=== PATIENT | male | born 1940 | race Caucasian/White ===

== ENCOUNTER 2021-04-13 14:57 | Inpatient (IN) | payer MEDICARE, SELFPAY ==
[2021-04-13] VITALS (14 sets, daily range): BP systolic 88–105; BP diastolic 38–66; PULSE 82–106; RESP 12–28; TEMP 36.5–38.7; O2SAT 95–99; BMI 23.3
--- NOTE | ~2021-04-13 | CT_ITS ---
EXAMINATION: CT CHEST, ABDOMEN AND PELVIS WITHOUT CONTRAST CLINICAL INFORMATION: fever, ? Pneumonia, nephrostomy tube in place with abscess? pylenophritis? stone? COMPARISON: No pertinent prior studies are available for comparison. TECHNIQUE: Multidetector volumetric imaging was performed from the thoracic inlet through the pubic symphysis without IV contrast. Sagittal and coronal reformatted images were obtained on the technologist's workstation. This CT examination was performed using dose optimization techniques as appropriate, variously including the following: *Automated exposure control *Adjustment of mA and/or kV according to patient size (this includes techniques or standardized protocols for targeted exams where dose is matched to indication/reason for exam; i.e. extremities or head) *Use of iterative reconstruction technique DLP: 444 mGy-cm FINDINGS: CHEST: Lung: The lungs are clear without focal opacity or nodule. Bibasilar atelectasis/infiltrate is present, right greater than left. Mediastinum: Marked coronary calcifications are present. No hilar or mediastinal lymphadenopathy. Pericardium/Pleura: Small bilateral effusions are present, right greater than left. Chest Wall/Axilla: Severe kyphosis is present. Unremarkable ABDOMEN/PELVIS: Peritoneal Space: No significant free air or free fluid identified. Liver, Gallbladder, Biliary Tree: The liver is normal in size, shape, and attenuation. No focal hepatic lesion or biliary ductal dilatation is present. The gallbladder contains layering high density gallstones with no evidence of gallbladder wall thickening, or obvious pericholecystic inflammatory changes. Pancreas: Unremarkable Spleen: Unremarkable Adrenal Glands: Unremarkable Kidneys and Ureters: The right kidney is unremarkable. A percutaneous nephrostomy catheter is present in the left. Some left lower pole as well as left upper pole renal calculi are present, with the largest measuring 7 mm in the upper pole. No hydronephrosis is seen. No renal masses are detected. Bladder: 3 stones are present in the bladder the largest measuring about 5 mm in size. Ayala catheter balloon is inflated in the pendulous portion of the urethra. Gastrointestinal Tract: Diverticular changes present in the colon without diverticulitis. The small and large bowel are otherwise unremarkable. The appendix is unremarkable. Abdominal Wall: No significant hernia is appreciated. Lymph Nodes: No lymphadenopathy. Vascular: Calcific atherosclerotic changes present in the aorta and iliofemoral vessels without aneurysm.. An IVC filter is in place. PELVIC VISCERA: There is marked enlargement of the prostate measuring 6.7 x 6.4 x 7.1 cm for a volume of 160 to 200 mL. The seminal vesicles appear normal. OSSEUS STRUCTURES: Some ill-defined sclerotic changes are present in the bones without discrete lesion. 3 focal sclerotic densities seen in the left femoral head consistent with bone islands. Degenerative changes present in the spine. There are compression fractures of the superior endplates of L4 and L1, age indeterminate. If bony metastatic disease is questioned, would recommend a radionuclide bone scan.. CT/CT abdomen pelvis wo con IMPRESSION: 1. Bilateral pleural effusions with bilateral lower lobe atelectasis/infiltrate 2. Left percutaneous nephrostomy catheter in good position without hydronephrosis and left renal calculi. No perinephric abscess. 3. The catheter is in the urethra and not the bladder. The prostate is extremely large and there are 3 calculi in the bladder. 4. Cholelithiasis is present without evidence of cholecystitis. 5. Diffuse sclerotic areas in bone are seen along with compression fractures involving L1 and L4. Metastatic prostate CA is a consideration and a radionuclide bone scan would be of value. 6. Other incidental findings as described above including the presence of an IVC filter. This critical result was discussed with Austin YEAGER@7:04pm on the day of the exam and it was ascertained that the content and urgency of the report was understood at the time of direct communication.
[2021-04-13 15:25] LABS: Glucose, Whole Blood 94 mg/dL (60-115)
--- NOTE | 2021-04-13 15:38 | ED.MALEGU ---
HPI - Male Genitourinary General Chief complaint: Urogenital-Male Stated complaint: NAUSEA,BLOODY URINE IN F/C Time Seen by Provider: 04/13/21 15:25 Source: patient Mode of arrival: ambulatory Limitations: no limitations History of Present Illness HPI Narrative: 80-year-old male with past medical history of dementia and prostate cancer brought to ED for evaluation. Patient vomiting and had 1 episode of hematuria. Patient status post surgery from [facility] 3 weeks ago for nephrostomy tube. Patient cannot give much history. Patient is febrile tachycardic. Will do infectious workup. Will contact [facility] for patient in nose. Related Data Allergies Allergy/AdvReac Type Severity Reaction Status Date / Time No Known Allergies Allergy Verified 04/13/21 15:11 Review of Systems Review of Systems: Not get history from patient. Yes Unobtainable due to mental status (Severe dementia) FOR[facility]LY [facility] Past Medical History Medical History (Updated 04/13/21 @ 21:55 by SHOBHA Montague) Prostate cancer Social History Social History Alcohol intake: unknown Patient Tobacco Use Status: Tobacco use Unknown Use of substances other than those prescribed or required for medical reasons: Unknown Advance Directives: No Advance Directives Information Provided: Yes Physical Exam Vital Signs: Vital Signs: Last Vital Signs Temp 97.7 F 04/13/21 19:14 Pulse 84 04/13/21 21:28 Resp 18 04/13/21 21:28 BP 90/45 L 04/13/21 21:28 Pulse Ox 97 04/13/21 21:28 Body Mass Index 23.3 Const: General: cooperative, healthy appearing, comfortable, no acute distress, well developed, alert, awake and Physically active Orientation/consciousness: patient oriented x3 HENMT: Head: Yes normal to inspection, Yes No palpable skull fracture present, Yes normocephalic, Yes atraumatic and No abrasion Eyes: General: appearance normal, both eyes and all related structures Neck: Neck: Yes normal visual inspection, Yes full ROM, Yes no lymphadenopathy, Yes no meningeal signs, Yes trachea midline, Yes supple and No tender Chest: Chest palpation & inspection: normal inspection of the chest and normal palpation of entire chest wall Resp: Effort & Inspection: normal respiratory effort and able to speak in complete sentences Auscultation: clear to auscultation bilaterally Cardio: Jugular venous distension: no JVD Heart sounds: S1 normal heart sound present and S2 normal heart sound present GI: Other: Nephrostomy tube placed from a right flank and negative for any surrounding erythema or pus discharge. Inspection: Yes normal to inspection and No abdominal wall ecchymosis Palpation (GI): Soft to palpation, not firm, nontender, no guarding and not rigid : Other: Positive for blood in Ayala bag since and some blood around urethra. General: No CVA tenderness and Yes no CVA tenderness Back/Spine/Pelvis: Back: no CVA tenderness, No CVA tenderness and No back tenderness Skin: General skin exam: no rashes or lesions noted and elasticity normal Neuro: General: patient oriented x3, gait normal, no meningeal signs and CN's II-XI intact bilaterally Cranial nerves: Yes CN's II-XII intact bilaterally Psych: Appearance: grossly normal, well kempt and not disheveled Course Course Course Narrative: Will look for infectious source most likely patient will be sent for chest CT and abdominal CT to rule out any nephrostomy tube infection pyelonephritis or pneumonia. I spoke with labs and was send urine sample from both Ayala and nephrostomy tube. Antibiotics ordered. Reevaluation(s) Reevaluation #1: Patient hematuria resolved after being flushed. Clear urine. Patient sent for chest CT and abdominal CT to look for abscess on nephrostomy tube and possible pneumonia. Patient given fluids. Lactic acid 4.3. Antibiotics given. After imaging will contact Nephrology to see if patient should be transferred to [facility]. Time: 20:24 Reevaluation #2: Abdominal CT scan does not show any hydronephrosis, abscess around nephrostomy tube, or any urinary stone. Abdominal CT does shows pneumonia and also Ayala not being placed in bladder. Spoke with Dr. Napoles he was informed of patient's history, physical exam and diagnostic. He reviewed patient's abdominal CT scan states patient does not need to be transferred to [facility] due to improvement in Urology issue. Old from [facility] on the states that patient had ureter stone with hydronephrosis but now that has resolved. Will contact hospitalist for admission for sepsis due to pneumonia and UTI. Time: 20:34 Reevaluation #3: Spoke with hospitalist Dr. Tatum who recommends patient go to ICU due to patient needing pressors due to low blood pressure. Spoke with Dr. Butcher ICU and agreeable to accept patient for sepsis with hypotension and can start peripheral IV phenylephrine. Spoke with Dr. Napoles in terms of CT scan reading of Ayala not being in bladder but in urethra and he states fully does not have to be placed tonight and he will change it in the morning. Focused exam complete. Time: 21:52 Additional Reevaluation(s): Daughter Yenni Barragan ) MDM - Male Genitourinary MDM Narrative Medical decision making narrative: Sepsis. Pneumonia. UTI Lab Data Result diagrams: 04/13/21 16:12 04/13/21 16:14 Labs: Lab Results 04/13/21 04/13/21 04/13/21 Range/Units 15:20 15:57 16:11 WBC (4.8-10.8) X10*3/uL RBC (4.60-5.80) X10*6/uL Hgb (14.0-18.0) g/dl Hct (42-52) % MCV (80-98) fL MCH (27.0-33.0) pg MCHC (31.0-36.0) g/dl RDW (11.0-16.0) % Plt Count (160-400) X10*3/uL MPV (9.4-12.4) fL Immature Gran % (Auto) (0.0-0.4) % Neut % (Auto) (45-73) % Lymph % (Auto) (20-40) % [place] % (Auto) (2-11) % Eos % (Auto) (0-4) % Baso % (Auto) (0-2) % Lymph # (Auto) (1.2-4.9) X10*3/uL [place] # (Auto) (0.1-1.2) X10*3/uL Eos # (Auto) (0.0-0.4) X10*3/uL Baso # (Auto) (0.0-0.2) X10*3/uL Abs Immat Gran (auto) (0.00-0.03) X10*3/uL Absolute Neuts (auto) (2.0-8.3) X10*3/uL Absolute Nucleated RBC (0.0-0.012) X10*3/uL Nucleated RBC % (auto) (0.0-0.2) /100WBC Smear Tech's Comments PT (9.9-13.0) SEC INR (0.9-1.1) APTT (24.1-38.0) SEC Sodium (135-145) mmol/L Potassium (3.3-5.1) mmol/L Chloride (96-108) mmol/L Carbon Dioxide (22-29) mmol/L Anion Gap (12-20) BUN (9-16) mg/dL Creatinine (0.5-1.4) mg/dL Estim Creat Clear Calc Estimated GFR POC Glucose 94 (60-115) mg/dL Random Glucose (60-115) mg/dL Lactic Acid 4.3 H* (0.5-2.0) mmol/L Lactic Acid Fup @ 2Hr (0.5-2.0) mmol/L Calcium (8.4-10.2) mg/dL Total Bilirubin (0.0-1.0) mg/dL AST (5-37) U/L ALT (0-40) U/L Alkaline Phosphatase (39-117) U/L Total Protein (6.5-8.0) g/dL Albumin (3.5-5.0) g/dL Urine Color Urine Appearance Urine pH (5.0-8.0) Ur Specific [place] (1.005-1.025) Urine Protein (NEG-TRACE) MG/DL Urine Glucose (UA) (NEG) MG/DL Urine Ketones (NEG) MG/DL Urine Blood (NEG) Urine Nitrite (NEG) Ur Leukocyte Esterase (NEG) Urine RBC (0) /HPF Urine WBC (0-4) /HPF Ur Squamous Epith Cells /LPF Urine Bacteria /LPF Influenza Type A (PCR) NEGATIVE (Negative) Influenza Type B (PCR) NEGATIVE (Negative) RSV RNA Qual (PCR) NEGATIVE (Negative) SARS-CoV-2 RNA (RT-PCR) NEGATIVE (Negative) 04/13/21 04/13/21 04/13/21 Range/Units 16:12 16:12 16:14 WBC 8.7 (4.8-10.8) X10*3/uL RBC 3.35 L (4.60-5.80) X10*6/uL Hgb 9.9 L (14.0-18.0) g/dl Hct 31.4 L (42-52) % MCV 93.7 (80-98) fL MCH 29.6 (27.0-33.0) pg MCHC 31.5 (31.0-36.0) g/dl RDW 18.2 H (11.0-16.0) % Plt Count 143 L (160-400) X10*3/uL MPV 9.5 (9.4-12.4) fL Immature Gran % (Auto) 0.8 H (0.0-0.4) % Neut % (Auto) 90.7 H (45-73) % Lymph % (Auto) 3.7 L (20-40) % [place] % (Auto) 4.3 (2-11) % Eos % (Auto) 0.3 (0-4) % Baso % (Auto) 0.2 (0-2) % Lymph # (Auto) 0.3 L (1.2-4.9) X10*3/uL [place] # (Auto) 0.4 (0.1-1.2) X10*3/uL Eos # (Auto) 0.0 (0.0-0.4) X10*3/uL Baso # (Auto) 0.0 (0.0-0.2) X10*3/uL Abs Immat Gran (auto) 0.07 H (0.00-0.03) X10*3/uL Absolute Neuts (auto) 7.9 (2.0-8.3) X10*3/uL Absolute Nucleated RBC 0.000 (0.0-0.012) X10*3/uL Nucleated RBC % (auto) 0.0 (0.0-0.2) /100WBC Smear Tech's Comments VERIFIED PT 15.8 H (9.9-13.0) SEC INR 1.4 H (0.9-1.1) APTT 32.3 (24.1-38.0) SEC Sodium 139 (135-145) mmol/L Potassium 5.1 (3.3-5.1) mmol/L Chloride 111 H (96-108) mmol/L Carbon Dioxide 18 L (22-29) mmol/L Anion Gap 15 (12-20) BUN 21 H (9-16) mg/dL Creatinine 1.72 H (0.5-1.4) mg/dL Estim Creat Clear Calc 30.3 Estimated GFR 38 POC Glucose (60-115) mg/dL Random Glucose 127 H (60-115) mg/dL Lactic Acid (0.5-2.0) mmol/L Lactic Acid Fup @ 2Hr (0.5-2.0) mmol/L Calcium 7.7 L (8.4-10.2) mg/dL Total Bilirubin 1.5 H (0.0-1.0) mg/dL AST 27 (5-37) U/L ALT 15 (0-40) U/L Alkaline Phosphatase 367 H (39-117) U/L Total Protein 5.4 L (6.5-8.0) g/dL Albumin 3.4 L (3.5-5.0) g/dL Urine Color Urine Appearance Urine pH (5.0-8.0) Ur Specific [place] (1.005-1.025) Urine Protein (NEG-TRACE) MG/DL Urine Glucose (UA) (NEG) MG/DL Urine Ketones (NEG) MG/DL Urine Blood (NEG) Urine Nitrite (NEG) Ur Leukocyte Esterase (NEG) Urine RBC (0) /HPF Urine WBC (0-4) /HPF Ur Squamous Epith Cells /LPF Urine Bacteria /LPF Influenza Type A (PCR) (Negative) Influenza Type B (PCR) (Negative) RSV RNA Qual (PCR) (Negative) SARS-CoV-2 RNA (RT-PCR) (Negative) 04/13/21 04/13/21 04/13/21 Range/Units 18:37 18:47 18:54 WBC (4.8-10.8) X10*3/uL RBC (4.60-5.80) X10*6/uL Hgb (14.0-18.0) g/dl Hct (42-52) % MCV (80-98) fL MCH (27.0-33.0) pg MCHC (31.0-36.0) g/dl RDW (11.0-16.0) % Plt Count (160-400) X10*3/uL MPV (9.4-12.4) fL Immature Gran % (Auto) (0.0-0.4) % Neut % (Auto) (45-73) % Lymph % (Auto) (20-40) % [place] % (Auto) (2-11) % Eos % (Auto) (0-4) % Baso % (Auto) (0-2) % Lymph # (Auto) (1.2-4.9) X10*3/uL [place] # (Auto) (0.1-1.2) X10*3/uL Eos # (Auto) (0.0-0.4) X10*3/uL Baso # (Auto) (0.0-0.2) X10*3/uL Abs Immat Gran (auto) (0.00-0.03) X10*3/uL Absolute Neuts (auto) (2.0-8.3) X10*3/uL Absolute Nucleated RBC (0.0-0.012) X10*3/uL Nucleated RBC % (auto) (0.0-0.2) /100WBC Smear Tech's Comments PT (9.9-13.0) SEC INR (0.9-1.1) APTT (24.1-38.0) SEC Sodium (135-145) mmol/L Potassium (3.3-5.1) mmol/L Chloride (96-108) mmol/L Carbon Dioxide (22-29) mmol/L Anion Gap (12-20) BUN (9-16) mg/dL Creatinine (0.5-1.4) mg/dL Estim Creat Clear Calc Estimated GFR POC Glucose (60-115) mg/dL Random Glucose (60-115) mg/dL Lactic Acid (0.5-2.0) mmol/L Lactic Acid Fup @ 2Hr 2.5 H* (0.5-2.0) mmol/L Calcium (8.4-10.2) mg/dL Total Bilirubin (0.0-1.0) mg/dL AST (5-37) U/L ALT (0-40) U/L Alkaline Phosphatase (39-117) U/L Total Protein (6.5-8.0) g/dL Albumin (3.5-5.0) g/dL Urine Color RED YELLOW Urine Appearance TURBID CLOUDY Urine pH 7.0 6.0 (5.0-8.0) Ur Specific [place] 1.025 >= 1.030 H (1.005-1.025) Urine Protein 3+ H 3+ H (NEG-TRACE) MG/DL Urine Glucose (UA) NEG NEG (NEG) MG/DL Urine Ketones NEG NEG (NEG) MG/DL Urine Blood 3+ H 3+ H (NEG) Urine Nitrite POS H POS H (NEG) Ur Leukocyte Esterase 2+ H 2+ H (NEG) Urine RBC TNTC H 30-49 H (0) /HPF Urine WBC 5-9 H 50-75 H (0-4) /HPF Ur Squamous Epith Cells 1+ NONE /LPF Urine Bacteria 1+ 3+ /LPF Influenza Type A (PCR) (Negative) Influenza Type B (PCR) (Negative) RSV RNA Qual (PCR) (Negative) SARS-CoV-2 RNA (RT-PCR) (Negative) Critical Care Time Critical Care Time Critical Care Time: Yes Total Critical Care Time: 60 Attestation: Patient is septic. Patient given septic fluid. IV antibiotics orders. Patient placed on pressors. Patient admitted to ICU Discharge Plan Discharge Clinical Impression: Sepsis, Acute UTI, Pneumonia Patient Disposition: Admitted As Inpatient
[2021-04-13] MEDS: 0.9 % Sodium Chloride 1,000 ML 999 ML IV ×2 (15:42→16:13)
[2021-04-13 16:21] LABS: Basophils Percent Auto 0.2 % (0-2); Eosinophils Percent Auto 0.3 % (0-4); Hematocrit 31.4 % (42-52); Hemoglobin 9.9 g/dl (14.0-18.0); Imm Gran Abs Auto 0.07 X10*3/uL (0.00-0.03); Imm Gran Pct Auto 0.8 % (0.0-0.4); Lymphocytes Absolute Auto 0.3 X10*3/uL (1.2-4.9); Lymphocytes Percent Auto 3.7 % (20-40); MANUAL DIFF FLAG SCAN; Mean Corpuscular HGB Conc 31.5 g/dl (31.0-36.0); Mean Corpuscular Hemoglobin 29.6 pg (27.0-33.0); Mean Corpuscular Volume 93.7 fL (80-98); Mean Platelet Volume 9.5 fL (9.4-12.4); Monocytes Absolute Auto 0.4 X10*3/uL (0.1-1.2); Monocytes Percent Auto 4.3 % (2-11); Neutrophils Absolute Auto 7.9 X10*3/uL (2.0-8.3); Neutrophils Percent Auto 90.7 % (45-73); Platelet Count 143 X10*3/uL (160-400); Red Blood Count 3.35 X10*6/uL (4.60-5.80); Red Cell Distribution Width 18.2 % (11.0-16.0); SCAN SMEAR FLAG 1; White Blood Count 8.7 X10*3/uL (4.8-10.8)
[2021-04-13 16:27] LABS: INTERNATIONAL NORM RATIO 1.4 (0.9-1.1); Prothrombin Time 15.8 SEC (9.9-13.0)
[2021-04-13 16:30] LABS: Partial Thromboplastin Time 32.3 SEC (24.1-38.0)
[2021-04-13 16:36] LABS: Lactic Acid 4.3 mmol/L (0.5-2.0)
[2021-04-13 16:37] LABS: Alanine Aminotransferase 15 U/L (0-40); Albumin Level 3.4 g/dL (3.5-5.0); Alkaline Phosphatase 367 U/L (39-117); Anion Gap 15 (12-20); Aspartate Amino Transferase 27 U/L (5-37); Bilirubin Total 1.5 mg/dL (0.0-1.0); Blood Urea Nitrogen 21 mg/dL (9-16); Calcium 7.7 mg/dL (8.4-10.2); Carbon Dioxide 18 mmol/L (22-29); Chloride 111 mmol/L (96-108); Creatinine Clr Calc Pharmacy 30.3; Estimated Glomerular Filt Rate 38; Glucose Random 127 mg/dL (60-115); Potassium 5.1 mmol/L (3.3-5.1); Sodium 139 mmol/L (135-145); Total Protein 5.4 g/dL (6.5-8.0)
[2021-04-13] MEDS: cefTRIAXone sodium 1 GM in 0.9 % Sodium Chloride 50 ML IV (16:49)
[2021-04-13 16:58] LABS: Influenza A PCR NEGATIVE (Negative); Influenza B PCR NEGATIVE (Negative); Resp Syncy Virus RNA Qual PCR NEGATIVE (Negative); SARS COV2 PCR INHOUSE NEGATIVE (Negative)
--- NOTE | 2021-04-13 17:00 | PC.NURSE ---
pt alert, pleasantly confused. pt brought to ED from [facility] due to copious amount of blood in his cuevas catheter. pt has history of prostate cancer and [place] [facility] has both a 3-way cuevas catheter and a nephrostomy. he denies abdominal pain/cramping. no chest pain. pt's daughter called to suggest [place] be [place] [facility] familiar with his medical history and his procedure was done there. SHOBHA Avila aware and spoke with pt's daughter.
[2021-04-13 17:10] LABS: SLIDE REVIEW VERIFIED
[2021-04-13] MEDS: 0.9 % Sodium Chloride 1,973.13 ML 1973.13 ML IV (18:13)
[2021-04-13 18:19] LABS: Reflex Lactate? Lactic Acid Added
[2021-04-13 19:12] LABS: Appearance Urine CLOUDY; Color Urine YELLOW; Glucose Urine UA NEG (NEG); Leukocyte Esterase Urine 2+ (NEG); Nitrite Urine POS (NEG); Specific Gravity - Urine >= 1.030 (1.005-1.025); UACC Culture Trigger YES; Urine Blood 3+ (NEG); Urine Ketones NEG (NEG); Urine Protein 3+ MG/DL (NEG-TRACE)
[2021-04-13 19:17] LABS: ~Lactic Acid-LAB USE ONLY 2.5 mmol/L (0.5-2.0)
[2021-04-13 19:19] LABS: Appearance Urine TURBID; Color Urine RED; Glucose Urine UA NEG (NEG); Leukocyte Esterase Urine 2+ (NEG); Nitrite Urine POS (NEG); Specific Gravity - Urine 1.025 (1.005-1.025); UACC Culture Trigger YES; Urine Blood 3+ (NEG); Urine Ketones NEG (NEG); Urine Protein 3+ MG/DL (NEG-TRACE)
[2021-04-13 19:22] LABS: Bacteria Urine 3+ /LPF
--- NOTE | 2021-04-13 19:22 | PC.NURSE ---
BP 93/40 MLP (SHOBHA Montague) notified no new orders at this time
[2021-04-13 19:23] LABS: RBC Urine 30-49 /HPF (0); WBC Urine 50-75 /HPF (0-4)
[2021-04-13 19:24] LABS: RBC Urine TNTC /HPF (0)
[2021-04-13 19:25] LABS: Bacteria Urine 1+ /LPF; Squamous Epithelial Cell Urine 1+ /LPF
[2021-04-13] MEDS: 0.9 % Sodium Chloride 500 ML IV (19:37)
[2021-04-13] MEDS: Azithromycin 500 MG in 0.9 % Sodium Chloride 250 ML 125 MG IV (20:31)
--- NOTE | 2021-04-13 20:43 | PC.NURSE ---
BP 88/38 Provider notified
[2021-04-13 20:58] LABS: Reflex Lactate? 2 Y
[2021-04-13] MEDS: Albumin Human 25 % 100 ML IV ×2 (21:16→22:01)
--- NOTE | 2021-04-13 21:17 | PC.NURSE ---
ICU EXTERMINATOR HELPER TERMITE Kenyatta at bedside. Per ICU provider, stop azithromycin at this time
--- NOTE | 2021-04-13 21:24 | P.HPCC_ITS ---
History of Present Illness Date of Service: 04/13/21 Attending physician on admission: Thee Butcher Chief Complaint: Hematuria This is a 80 year old male with? past medical history of metastatic prostate cancer, BPH, CKD, nephrolithiasis, hepatic steatosis, Hypertension, anemia, chronic back pain and chronic? and recent? ICU admission at [facility] (03-28-21 to 04-05-21) for Shock from left-sided obstructive hydroureteronephrosis in the setting of obstructing calculi s/p nephrostomy and newly found metastatic prostate cancer. He? presented to the emergency room from rehab facility with complaints of hematuria and vomiting. ? In the emergency room he was noted to be hypotensive,? T high 101.6,? and tachycardic.?? CT of the chest/abdomen:? showing bilateral lower lobe effusions, Cholelithiasis is present without evidence of cholecystitis, Diffuse sclerotic areas in bone are seen along with compression fractures involving L1 and L4. Laboratory data significant for? platelets 143, INR 1.4 chloride 111,? bicarb 18, BUN 21, creatinine 1.72,? calcium 7.7,lactic acid 4.3, alk-phos 367, total bilirubin 1.5,? albumin 3.4.? Patient will be admitted for? hypotension? due to sepsis likely from our Urology source. Review of Systems Review of Systems: Constitutional: No recent weight loss, fever, chills, weakness or fatigue. Allergy/Immune: Denies any Eczema or hives Eyes: No visual loss, blurred vision, double vision or yellow sclera ENT: No hearing loss, sneezing, congestion, runny nose or sore throat. Respiratory: No shortness of breath, cough or sputum production. Cardiovascular: No chest pain, chest pressure or chest discomfort. No palpitations or pedal edema. Gastrointestinal:+ vomiting and nausea. No anorexia or diarrhea. No abdominal pain or blood in stool. Genitourinary: + hematuria, + cuevas and nephrostomy. No burning micturition. Neurologic: No headache, dizziness, syncope, unilateral weakness, ataxia, numbness or tingling in the extremities. No change in bowel or bladder control. Musculoskeletal: No muscle pain, back pain, joint pain or stiffness. Hematologic/Lymphatics: No bleeding or bruising. No painful lymph nodes. Skin: No rash or itching. PMFSH Past Medical History Medical History (Updated 04/13/21 @ 22:34 by Bindu Trinh, RN) Anemia Chronic kidney failure DVT (deep venous thrombosis) Hypertension Presence of IVC filter Prostate cancer Surgical History Surgical History (Updated 04/13/21 @ 22:34 by Bindu Trinh, RN) Nephrostomy status Social History Social History Alcohol intake: unknown Patient Tobacco Use Status: Tobacco use Unknown Use of substances other than those prescribed or required for medical reasons: Unknown Advance Directives: No Advance Directives Information Provided: Yes Meds Allergies Allergy/AdvReac Type Severity Reaction Status Date / Time No Known Allergies Allergy Verified 04/13/21 15:11 Active Medications: Current Medications Heparin Sodium (Porcine) (Heparin Sodium,Porcine 5,000 Unit/Ml Vial) 5,000 unit SUBCUT Q8H LIBBY Azithromycin 500 mg/ Sodium (Chloride) 250 mls @ 125 mls/hr IV ONCE ONE Stop: 04/13/21 22:21 Last Infusion: 04/13/21 21:17 Dose: 0 mls/hr Documented by: Phenylephrine HCl 20 mg/ (Sodium Chloride) 252 mls @ 0 mls/hr IVCONT .Q0M LIBBY; Protocol Albumin Human (Kedbumin 25 %) 100 mls @ 100 mls/hr IV Q1H LIBBY Stop: 04/13/21 22:59 Last Admin: 04/13/21 21:16 Dose: 100 mls/hr Documented by: Piperacillin Sod/Tazobactam (Sod 4.5 gm/ Sodium Chloride) 100 mls @ 200 mls/hr IV Q8H LIBBY Vancomycin HCl 1,250 mg/ (Sodium Chloride) 250 mls @ 166.667 mls/hr IV ONCE ONE Stop: 04/13/21 22:47 Physical Exam Vital Signs: Vital Signs: Last Vital Signs Temp 97.7 F 04/13/21 19:14 Pulse 89 04/13/21 21:01 Resp 15 04/13/21 21:01 BP 94/43 L 04/13/21 21:01 Pulse Ox 95 04/13/21 21:01 Body Mass Index 23.3 Focused assessment performed at 2100 Constitutional: Alert, x 2-3. Forgetful, in no distress. Head: Normocephalic. Eyes: Pupils are equal, round and reactive to light. Extraocular muscles intact. Ear, Nose and Throat: Oropharynx clear, mucous membranes moist. Ears and nose without masses, lesions or deformities. Trachea midline. Neck: Supple, Full range of motion. Respiratory: Clear to auscultation. No wheezing, rales or rhonchi. Cardiovascular: Sinus tachycardia. S1 S2 regular. No murmurs, rubs or gallops. Gastrointestinal: Abdomen soft, non-tender, non-distended. Normal bowel sounds. No pulsatile mass. No hepatosplenomegaly. Genitourinary: + cuevas and nephrostomy. mild hematuria Results Labs CBC and Chem 7: 04/13/21 16:12 04/13/21 16:14 Labs: Laboratory Results - last 24 hr 04/13/21 04/13/21 04/13/21 15:20 15:57 16:11 MCV MCH MCHC RDW Plt Count MPV Immature Gran % (Auto) Neut % (Auto) Lymph % (Auto) [place] % (Auto) Eos % (Auto) Baso % (Auto) Lymph # (Auto) [place] # (Auto) Eos # (Auto) Baso # (Auto) Abs Immat Gran (auto) Absolute Neuts (auto) Absolute Nucleated RBC Nucleated RBC % (auto) Smear Tech's Comments PT INR APTT Anion Gap Estim Creat Clear Calc Estimated GFR POC Glucose 94 Random Glucose Lactic Acid 4.3 H* Lactic Acid Fup @ 2Hr Calcium Total Bilirubin AST ALT Alkaline Phosphatase Total Protein Albumin Urine Color Urine Appearance Urine pH Ur Specific [place] Urine Protein Urine Glucose (UA) Urine Ketones Urine Blood Urine Nitrite Ur Leukocyte Esterase Urine RBC Urine WBC Ur Squamous Epith Cells Urine Bacteria Influenza Type A (PCR) NEGATIVE Influenza Type B (PCR) NEGATIVE RSV RNA Qual (PCR) NEGATIVE SARS-CoV-2 RNA (RT-PCR) NEGATIVE 04/13/21 04/13/21 04/13/21 16:12 16:12 16:14 MCV 93.7 MCH 29.6 MCHC 31.5 RDW 18.2 H Plt Count 143 L MPV 9.5 Immature Gran % (Auto) 0.8 H Neut % (Auto) 90.7 H Lymph % (Auto) 3.7 L [place] % (Auto) 4.3 Eos % (Auto) 0.3 Baso % (Auto) 0.2 Lymph # (Auto) 0.3 L [place] # (Auto) 0.4 Eos # (Auto) 0.0 Baso # (Auto) 0.0 Abs Immat Gran (auto) 0.07 H Absolute Neuts (auto) 7.9 Absolute Nucleated RBC 0.000 Nucleated RBC % (auto) 0.0 Smear Tech's Comments VERIFIED PT 15.8 H INR 1.4 H APTT 32.3 Anion Gap 15 Estim Creat Clear Calc 30.3 Estimated GFR 38 POC Glucose Random Glucose 127 H Lactic Acid Lactic Acid Fup @ 2Hr Calcium 7.7 L Total Bilirubin 1.5 H AST 27 ALT 15 Alkaline Phosphatase 367 H Total Protein 5.4 L Albumin 3.4 L Urine Color Urine Appearance Urine pH Ur Specific [place] Urine Protein Urine Glucose (UA) Urine Ketones Urine Blood Urine Nitrite Ur Leukocyte Esterase Urine RBC Urine WBC Ur Squamous Epith Cells Urine Bacteria Influenza Type A (PCR) Influenza Type B (PCR) RSV RNA Qual (PCR) SARS-CoV-2 RNA (RT-PCR) 04/13/21 04/13/21 04/13/21 18:37 18:47 18:54 MCV MCH MCHC RDW Plt Count MPV Immature Gran % (Auto) Neut % (Auto) Lymph % (Auto) [place] % (Auto) Eos % (Auto) Baso % (Auto) Lymph # (Auto) [place] # (Auto) Eos # (Auto) Baso # (Auto) Abs Immat Gran (auto) Absolute Neuts (auto) Absolute Nucleated RBC Nucleated RBC % (auto) Smear Tech's Comments PT INR APTT Anion Gap Estim Creat Clear Calc Estimated GFR POC Glucose Random Glucose Lactic Acid Lactic Acid Fup @ 2Hr 2.5 H* Calcium Total Bilirubin AST ALT Alkaline Phosphatase Total Protein Albumin Urine Color RED YELLOW Urine Appearance TURBID CLOUDY Urine pH 7.0 6.0 Ur Specific [place] 1.025 >= 1.030 H Urine Protein 3+ H 3+ H Urine Glucose (UA) NEG NEG Urine Ketones NEG NEG Urine Blood 3+ H 3+ H Urine Nitrite POS H POS H Ur Leukocyte Esterase 2+ H 2+ H Urine RBC TNTC H 30-49 H Urine WBC 5-9 H 50-75 H Ur Squamous Epith Cells 1+ NONE Urine Bacteria 1+ 3+ Influenza Type A (PCR) Influenza Type B (PCR) RSV RNA Qual (PCR) SARS-CoV-2 RNA (RT-PCR) Imaging Radiologist's Impressions: Impressions Abdomen/Pelvis CT 04/13/21 16:35 IMPRESSION: 1. Bilateral pleural effusions with bilateral lower lobe atelectasis/infiltrate 2. Left percutaneous nephrostomy catheter in good position without hydronephrosis and left renal calculi. No perinephric abscess. 3. The catheter is in the urethra and not the bladder. The prostate is extremely large and there are 3 calculi in the bladder. 4. Cholelithiasis is present without evidence of cholecystitis. 5. Diffuse sclerotic areas in bone are seen along with compression fractures involving L1 and L4. Metastatic prostate CA is a consideration and a radionuclide bone scan would be of value. 6. Other incidental findings as described above including the presence of an IVC filter. This critical result was discussed with Austin YEAGER@7:04pm on the day of the exam and it was ascertained that the content and urgency of the report was understood at the time of direct communication. Chest CT 04/13/21 16:35 IMPRESSION: 1. Bilateral pleural effusions with bilateral lower lobe atelectasis/infiltrate 2. Left percutaneous nephrostomy catheter in good position without hydronephrosis and left renal calculi. No perinephric abscess. 3. The catheter is in the urethra and not the bladder. The prostate is extremely large and there are 3 calculi in the bladder. 4. Cholelithiasis is present without evidence of cholecystitis. 5. Diffuse sclerotic areas in bone are seen along with compression fractures involving L1 and L4. Metastatic prostate CA is a consideration and a radionuclide bone scan would be of value. 6. Other incidental findings as described above including the presence of an IVC filter. This critical result was discussed with Austin YEAGER@7:04pm on the day of the exam and it was ascertained that the content and urgency of the report was understood at the time of direct communication. Assessment and Plan (1) Septic shock: Status: Acute Neuro: no aute issues Cardiac:?? Septic shock, ? Patient is? hypotensive, ? tachycardic,? and lactic acid elevated to 4.3. Likely from urology source UTI vs Cholelithiasis. ? Receive appropriate fluids in the emergency room. Will start? broad-spectrum antibiotics with vancomycin and Zosyn.? Give? 200 of albumin.? Will initiate pressors if necessary Pulmonary:? ?Patient has bilateral? lower lobe effusions,? but is satting 98% on room air with no cough in shortness of breath.? Respiratory is likely not the cause of septic shock.? Renal:?? ?Cholelithiasis: Has recent hx of obstructing calculi s/p nephrostomy. Ct today not showing obstruction.? Still a risk for possible infection.? Will continue antibiotic.? Urology? following.? Incidental finding on the CT, Cuevas catheter not on bladder. Dr Napoles will replace cuevas in the morning.? ?Patient has CKD with ANIYAH? with baseline creatinine 1.2. ANIYAH- most likely related to hypoperfusion, nonoliguric.? 2L in the ED.? Continue to check renal induces and urine output Endo:? No acute issues.?? GI:? ? No acute issues? ID:? septic shock from UTI.? on Sozyn? and vancomycin.? Cont abx until cultures result Heme/Onc:?? ?Chronic thrombocytopenia,? does have an IVC filter. ? Will avoid heparin at this time.? Continue pneumatic devices Psych:? No acute issues. Diet: NPO Prophylaxis:? pneumo boots. ? Does not require GI prophylaxis Code? status:? ? DNR/DNI confirmed with daughter Yenni? Critical care time: x 60 min Case reviewed with attending Dr. Butcher (2) Sepsis: Status: Acute (3) Cholelithiasis: Status: Acute (4) Acute UTI: Status: Acute (5) ANIYAH (acute kidney injury): Status: Acute (6) Thrombocytopenia: Status: Acute (7) Hematuria: Status: Acute Critical Care Time Critical Care Time (minutes): 60
[2021-04-13] MEDS: vancomycin HCL 1,250 MG in 0.9 % Sodium Chloride 250 ML 166.67 MG IV (21:27)
[2021-04-13 21:28] LABS: ~Lactic Acid-LAB USE ONLY 2.3 mmol/L (0.5-2.0)
--- NOTE | 2021-04-13 21:28 | PC.NURSE ---
per ICU provider Kenyatta RESISTOR COATER, phenylephrine to be held until albumin finishes infusing-provider ok with pts BP at this time Vanco started per AUG by this RN
--- NOTE | 2021-04-13 22:09 | PC.NURSE ---
nurse to nurse report given to Sunshine ELLINGTON
[2021-04-13] MEDS: Piperacillin Sodium/Tazobactam 4.5 GM in 0.9 % Sodium Chloride 100 ML IV (22:50)
[2021-04-14] VITALS (26 sets, daily range): BP systolic 82–100; BP diastolic 38–48; PULSE 60–91; RESP 12–35; TEMP 36.7–37.2; O2SAT 92–98; BMI 22.4
[2021-04-14 05:46] LABS: MANUAL DIFF FLAG NO
[2021-04-14] MEDS: Piperacillin Sodium/Tazobactam 4.5 GM in 0.9 % Sodium Chloride 100 ML IV ×3 (05:56→21:26)
[2021-04-14 06:05] LABS: Alanine Aminotransferase 11 U/L (0-40); Albumin Level 3.1 g/dL (3.5-5.0); Alkaline Phosphatase 252 U/L (39-117); Anion Gap 12 (12-20); Aspartate Amino Transferase 17 U/L (5-37); Blood Urea Nitrogen 22 mg/dL (9-16); Calcium 7.4 mg/dL (8.4-10.2); Carbon Dioxide 17 mmol/L (22-29); Chloride 113 mmol/L (96-108); Creatinine Clr Calc Pharmacy 31.1; Estimated Glomerular Filt Rate 39; Glucose Random 128 mg/dL (60-115); Magnesium 1.8 mg/dL (1.6-2.6); Phosphorus 3.4 mg/dL (2.7-4.5); Potassium 4.2 mmol/L (3.3-5.1); Sodium 138 mmol/L (135-145); Total Protein 4.5 g/dL (6.5-8.0)
[2021-04-14 06:07] LABS: Basophils Percent Auto 0.2 % (0-2); Eosinophils Percent Auto 0.2 % (0-4); Hematocrit 22.1 % (42-52); Hemoglobin 7.3 g/dl (14.0-18.0); Imm Gran Abs Auto 0.02 X10*3/uL (0.00-0.03); Imm Gran Pct Auto 0.4 % (0.0-0.4); Lymphocytes Absolute Auto 0.5 X10*3/uL (1.2-4.9); Lymphocytes Percent Auto 10.9 % (20-40); Mean Corpuscular Hemoglobin 30.8 pg (27.0-33.0); Mean Corpuscular Volume 93.2 fL (80-98); Mean Platelet Volume 10.4 fL (9.4-12.4); Monocytes Absolute Auto 0.5 X10*3/uL (0.1-1.2); Monocytes Percent Auto 10.7 % (2-11); Neutrophils Absolute Auto 3.6 X10*3/uL (2.0-8.3); Neutrophils Percent Auto 77.6 % (45-73); Red Blood Count 2.37 X10*6/uL (4.60-5.80); Red Cell Distribution Width 18.3 % (11.0-16.0); White Blood Count 4.6 X10*3/uL (4.8-10.8)
[2021-04-14 06:08] LABS: Platelet Count 69 X10*3/uL (160-400)
--- NOTE | 2021-04-14 06:25 | PC.NURSE ---
Pt admitted to ICU at approx 2230. Pt A&Ox2, otherwise confused but calm/cooperative. NSR/SB on tele, HR 50-70s, low of 42. 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 Phenylephrine gtt not started. Pt offers no complaints. Ayala with 75 ml of bloody urine, L nephrostomy with 125 ml of urine all shift, M[employer]MING MACHINE SETTER aware. Skin intact, generalized bruising. Medicated per emar.
[2021-04-14] MEDS: Albumin Human 25 % 100 ML IV ×3 (08:30→19:57)
--- NOTE | 2021-04-14 09:06 | PC.NURSE ---
Skin assessment completed. Patient has blanchable redness to buttocks and scattered bruising on arms/legs. No other skin issues noted at this time.
--- NOTE | 2021-04-14 09:37 | PHA.PROG ---
Addendum entered by Lucille Ro RPh 04/14/21 09:58: Changed to 1000 mg q24h to start at 1200 on 04/14. Will get a random trough on 04/15 @1100 before the 3rd dose to assess the renal function and exposure. Original Note: Admission Date/Time: April 13, 2021 21:02 Indication: Bacteremia Weight in k kg Adjusted body weight in Kg: [place] body weight in Kg: Obesity Dosing Indication % IBW: Serum Creatinine - Last 168 Hours 04/13/21 04/14/21 16:14 05:34 Creatinine 1.72 H 1.68 H Estimated CrCl and GFR - Last 168 Hours 04/13/21 04/14/21 16:14 05:34 Estim Creat Clear Calc 30.3 31.1 Estimated GFR 38 39 Vancomycin Loading Dose: 1000 mg x1dose 04/13 @1649 Current Vancomycin Dosing Regimen: 750 mg Q24H Vancomycin Monitoring using AUC goal of 400 - 600 range with trough as surrogate marker: Goal of AUC around 500. Date and Time for next Vancomycin Level to be drawn: 04/16 @ 1500 Pharmacist Comments on Vancomycin Plan: Patient's renal function and age is making a difference in the AUC calculation. Dosing regimen is estimating an AUC of 450 after 5 doses. Shortening the interval would only cause more risk than benefit. It estimates a trough of 15. Vancomycin dosing will take advantage of [employer] as a clinical decision support tool that uses Bayesian modeling to calculate individual patient's pharmacokinetic parameters and forecast the patient's drug concentration time course with the target goal AUC 24 range of 400 - 600 mg/L/hr.
--- NOTE | 2021-04-14 11:07 | MHC.CM.PN ---
Pt presented to ICU with sepsis from [facility]: KATHY and HCP on file: pt not a reliable historian at this time d/t medical condition: Information obtained from EMR, ICU staff and conversation with pt's dtr/HCP, Yenni. Per Yenni, pt had been at [facility] following d/c from [facility]. He was to return to home on 04/19 with [facility] and familiy support. My dad hates being in a rehab center. He wanted to come home. Yenni states she is a [employer] and is aware of her dad's care needs. She is requesting his d/c plan be a return to his home at [address] [place] [address] with prior arranged [facility] and 07/01 family care. She also stated [facility] will assist pt with a Hospice transition if that is necessary. CM to follow for finalization of d/c needs: Referred to [facility] and updated [facility] on pt/dtr plan.
[2021-04-14] MEDS: vancomycin HCL 1,000 MG in 0.9 % Sodium Chloride 250 ML 270 MG IV (12:50)
--- NOTE | 2021-04-14 13:08 | PM.CCPN ---
Subjective Subjective Date of Service: 04/14/21 Interval History: 80-year-old gentleman with underlying history metastatic prostate cancer on hospice CKD, nephrolithiasis as chronic back pain, recent [facility] admission for septic shock secondary to left-sided hydroureteronephrosis status post nephrostomy admitted on 04/13/2021 with bacteremia with likely source. Patient has had poor response to initial crystalloid resuscitation. He has been started on colloidal support and admitted to intensive care unit. Critical Care Time (minutes): 45 Physical Exam Vital Signs: Vital Signs: Last Vital Signs Temp 98.5 F 04/14/21 12:00 Pulse 70 04/14/21 12:00 Resp 22 H 04/14/21 12:00 BP 89/48 L 04/14/21 12:00 Pulse Ox 95 04/14/21 12:00 Body Mass Index 22.4 Const: General: no acute distress, alert and awake Nutritional Appearance: thin Eyes: Sclerae: sclerae normal EOM: EOMs intact bilaterally Neck: Neck: Yes no lymphadenopathy, Yes trachea midline and Yes supple Resp: Effort & Inspection: normal respiratory effort and no respiratory distress Auscultation: clear to auscultation bilaterally Cardio: Rate: regular rate Rhythm: regular rhythm Heart sounds: no gallops, no murmurs and no rubs GI: Palpation (GI): Soft to palpation and Other GI palpation findings present ( Nontender) Auscultation: normal bowel sounds : Other: Left nephrostomy Extrem: General: Yes no pedal edema, No clubbing and No cyanosis Objective Data Labs CBC & Chem 7: 04/14/21 05:34 04/14/21 05:34 Labs: Laboratory Results - last 24 hr 04/13/21 04/13/21 04/13/21 15:20 15:57 16:11 WBC RBC Hgb Hct MCV MCH MCHC RDW Plt Count MPV Immature Gran % (Auto) Neut % (Auto) Lymph % (Auto) Aiken % (Auto) Eos % (Auto) Baso % (Auto) Lymph # (Auto) [place] # (Auto) Eos # (Auto) Baso # (Auto) Abs Immat Gran (auto) Absolute Neuts (auto) Absolute Nucleated RBC Nucleated RBC % (auto) Smear Tech's Comments PT INR APTT Sodium Potassium Chloride Carbon Dioxide Anion Gap BUN Creatinine Estim Creat Clear Calc Estimated GFR POC Glucose 94 Random Glucose Lactic Acid 4.3 H* Lactic Acid Fup @ 2Hr Lactic Acid Fup @ 4Hr Calcium Phosphorus Magnesium Total Bilirubin AST ALT Alkaline Phosphatase Total Protein Albumin Urine Color Urine Appearance Urine pH Ur Specific [place] Urine Protein Urine Glucose (UA) Urine Ketones Urine Blood Urine Nitrite Ur Leukocyte Esterase Urine RBC Urine WBC Ur Squamous Epith Cells Urine Bacteria Influenza Type A (PCR) NEGATIVE Influenza Type B (PCR) NEGATIVE RSV RNA Qual (PCR) NEGATIVE SARS-CoV-2 RNA (RT-PCR) NEGATIVE 04/13/21 04/13/21 04/13/21 16:12 16:12 16:14 WBC 8.7 RBC 3.35 L Hgb 9.9 L Hct 31.4 L MCV 93.7 MCH 29.6 MCHC 31.5 RDW 18.2 H Plt Count 143 L MPV 9.5 Immature Gran % (Auto) 0.8 H Neut % (Auto) 90.7 H Lymph % (Auto) 3.7 L Aiken % (Auto) 4.3 Eos % (Auto) 0.3 Baso % (Auto) 0.2 Lymph # (Auto) 0.3 L Aiken # (Auto) 0.4 Eos # (Auto) 0.0 Baso # (Auto) 0.0 Abs Immat Gran (auto) 0.07 H Absolute Neuts (auto) 7.9 Absolute Nucleated RBC 0.000 Nucleated RBC % (auto) 0.0 Smear Tech's Comments VERIFIED PT 15.8 H INR 1.4 H APTT 32.3 Sodium 139 Potassium 5.1 Chloride 111 H Carbon Dioxide 18 L Anion Gap 15 BUN 21 H Creatinine 1.72 H Estim Creat Clear Calc 30.3 Estimated GFR 38 POC Glucose Random Glucose 127 H Lactic Acid Lactic Acid Fup @ 2Hr Lactic Acid Fup @ 4Hr Calcium 7.7 L Phosphorus Magnesium Total Bilirubin 1.5 H AST 27 ALT 15 Alkaline Phosphatase 367 H Total Protein 5.4 L Albumin 3.4 L Urine Color Urine Appearance Urine pH Ur Specific [place] Urine Protein Urine Glucose (UA) Urine Ketones Urine Blood Urine Nitrite Ur Leukocyte Esterase Urine RBC Urine WBC Ur Squamous Epith Cells Urine Bacteria Influenza Type A (PCR) Influenza Type B (PCR) RSV RNA Qual (PCR) SARS-CoV-2 RNA (RT-PCR) 04/13/21 04/13/21 04/13/21 18:37 18:47 18:54 WBC RBC Hgb Hct MCV MCH MCHC RDW Plt Count MPV Immature Gran % (Auto) Neut % (Auto) Lymph % (Auto) Aiken % (Auto) Eos % (Auto) Baso % (Auto) Lymph # (Auto) Aiken # (Auto) Eos # (Auto) Baso # (Auto) Abs Immat Gran (auto) Absolute Neuts (auto) Absolute Nucleated RBC Nucleated RBC % (auto) Smear Tech's Comments PT INR APTT Sodium Potassium Chloride Carbon Dioxide Anion Gap BUN Creatinine Estim Creat Clear Calc Estimated GFR POC Glucose Random Glucose Lactic Acid Lactic Acid Fup @ 2Hr 2.5 H* Lactic Acid Fup @ 4Hr Calcium Phosphorus Magnesium Total Bilirubin AST ALT Alkaline Phosphatase Total Protein Albumin Urine Color RED YELLOW Urine Appearance TURBID CLOUDY Urine pH 7.0 6.0 Ur Specific [place] 1.025 >= 1.030 H Urine Protein 3+ H 3+ H Urine Glucose (UA) NEG NEG Urine Ketones NEG NEG Urine Blood 3+ H 3+ H Urine Nitrite POS H POS H Ur Leukocyte Esterase 2+ H 2+ H Urine RBC TNTC H 30-49 H Urine WBC 5-9 H 50-75 H Ur Squamous Epith Cells 1+ NONE Urine Bacteria 1+ 3+ Influenza Type A (PCR) Influenza Type B (PCR) RSV RNA Qual (PCR) SARS-CoV-2 RNA (RT-PCR) 04/13/21 04/14/21 04/14/21 21:08 05:34 05:34 WBC 4.6 L RBC 2.37 L D Hgb 7.3 L D Hct 22.1 L D MCV 93.2 MCH 30.8 MCHC 33.0 RDW 18.3 H Plt Count 69 L D MPV 10.4 Immature Gran % (Auto) 0.4 Neut % (Auto) 77.6 H Lymph % (Auto) 10.9 L Aiken % (Auto) 10.7 Eos % (Auto) 0.2 Baso % (Auto) 0.2 Lymph # (Auto) 0.5 L Aiken # (Auto) 0.5 Eos # (Auto) 0.0 Baso # (Auto) 0.0 Abs Immat Gran (auto) 0.02 Absolute Neuts (auto) 3.6 Absolute Nucleated RBC 0.000 Nucleated RBC % (auto) 0.0 Smear Tech's Comments PT INR APTT Sodium 138 Potassium 4.2 Chloride 113 H Carbon Dioxide 17 L Anion Gap 12 BUN 22 H Creatinine 1.68 H Estim Creat Clear Calc 31.1 Estimated GFR 39 POC Glucose Random Glucose 128 H Lactic Acid Lactic Acid Fup @ 2Hr Lactic Acid Fup @ 4Hr 2.3 H* Calcium 7.4 L Phosphorus 3.4 Magnesium 1.8 Total Bilirubin 1.0 AST 17 ALT 11 Alkaline Phosphatase 252 H D Total Protein 4.5 L Albumin 3.1 L Urine Color Urine Appearance Urine pH Ur Specific [place] Urine Protein Urine Glucose (UA) Urine Ketones Urine Blood Urine Nitrite Ur Leukocyte Esterase Urine RBC Urine WBC Ur Squamous Epith Cells Urine Bacteria Influenza Type A (PCR) Influenza Type B (PCR) RSV RNA Qual (PCR) SARS-CoV-2 RNA (RT-PCR) Microbiology Microbiology Results: Microbiology 04/13/21 16:27 Blood - Venous Blood Culture - Preliminary Gram negative bravo Prelim: GPC Gram Stain only 04/13/21 16:11 Blood - Venous Blood Culture - Preliminary Prelim: GNR Gram Stain only Prelim: GPC Gram Stain only Quality Stroke Does the patient have a stroke diagnosis?: No VTE Prior VTE?: Yes VTE Risk Level:: Medical - moderate - high VTE Device Contraindication: Treatment Not Indicated VTE Drug Contraindication: N/A - Med Ordered Progress Note: A&P Assessment and plan (1) Sepsis: Status: Acute (2) ANIYAH (acute kidney injury): Status: Acute (3) Bacteremia: Status: Acute (4) Prostate cancer: Status: Acute Assessment and Plan: Assessment: 80-year-old gentleman admitted with sepsis with genitourinary source Plan: Neuro: No acute issues. Cardiac: No acute issues. Pulmonary: No acute issues. Renal: Acute kidney injury on the background of known renal calculi, sepsis, and prostate cancer. Non oliguric. Urology service care appreciated. Continue to monitor renal indices and urine output. Endo: No acute issues. GI: No acute issues. ID: Gram-positive and Gram-negative bacteremia empirically covered with broad-spectrum antibiotics. Heme/Onc: No acute issues. Psych: No acute issues. Miscellaneous: No acute issues. Prophylaxis: Pneumatic compression Diet: Regular Critical care time spent: 45 minutes
[2021-04-14] MEDS: fentaNYL citrate/PF 100 MCG/2 ML VIAL 25 MCG IVPUSH ×2 (17:21→22:07)
--- NOTE | 2021-04-14 18:21 | PC.NURSE ---
tmax 99, VSS. SR/SB on tele. Pt oriented to self, hospital, and saturday. LS clear, pt toelerating diet well. Cuevas removed by dr cottrell, pt able to void-incontinent, will hold off placing new cuevas. Family updated bed side, pt repoed as requested.
--- NOTE | 2021-04-14 21:39 | PC.NURSE ---
Patient noted to have a moderate incontinent episode of concentrated urine, slightly blood tinged. PVR noted to be 218mL. Unsure how long after incontinent episode PVR was obtained as patient is unable to state when he voided. Will continue to monitor.
[2021-04-15] VITALS (18 sets, daily range): BP systolic 94–148; BP diastolic 42–68; PULSE 54–98; RESP 14–64; TEMP 36.1–37.5; O2SAT 94–99; BMI 22.9
[2021-04-15] MEDS: Albumin Human 25 % 100 ML IV (02:11)
[2021-04-15] MEDS: Piperacillin Sodium/Tazobactam 4.5 GM in 0.9 % Sodium Chloride 100 ML IV (05:46)
[2021-04-15 05:47] LABS: VBG Base Excess -4.9 mmol/L; VBG HCO3 18 mmol/L (22-26); VBG pCO2 27 mmHg; VBG pH 7.43 (7.32-7.43); VBG pO2 28 mmHg
[2021-04-15 05:48] LABS: MANUAL DIFF FLAG NO
[2021-04-15 05:51] LABS: Basophils Percent Auto 0.3 % (0-2); Eosinophils Percent Auto 1.3 % (0-4); Hematocrit 21.4 % (42-52); Imm Gran Abs Auto 0.03 X10*3/uL (0.00-0.03); Lymphocytes Absolute Auto 0.5 X10*3/uL (1.2-4.9); Mean Corpuscular HGB Conc 30.8 g/dl (31.0-36.0); Mean Corpuscular Hemoglobin 29.6 pg (27.0-33.0); Mean Platelet Volume 10.4 fL (9.4-12.4); Monocytes Absolute Auto 0.4 X10*3/uL (0.1-1.2); Neutrophils Absolute Auto 2.1 X10*3/uL (2.0-8.3); Neutrophils Percent Auto 69.4 % (45-73); Platelet Count 64 X10*3/uL (160-400); Red Blood Count 2.23 X10*6/uL (4.60-5.80)
[2021-04-15 05:56] LABS: Hemoglobin 6.6 g/dl (14.0-18.0)
[2021-04-15 06:12] LABS: Albumin Level 3.8 g/dL (3.5-5.0); Anion Gap 12 (12-20); Blood Urea Nitrogen 28 mg/dL (9-16); Calcium 7.9 mg/dL (8.4-10.2); Carbon Dioxide 18 mmol/L (22-29); Chloride 117 mmol/L (96-108); Creatinine Clr Calc Pharmacy 26.9; Estimated Glomerular Filt Rate 33; Glucose Random 124 mg/dL (60-115); Phosphorus 2.8 mg/dL (2.7-4.5); Potassium 4.1 mmol/L (3.3-5.1); Sodium 143 mmol/L (135-145)
[2021-04-15 07:59] LABS: Venous Blood Gas Refer to POC result
--- NOTE | 2021-04-15 10:57 | P.PNCC_ITS ---
Subjective Subjective Date of Service: 04/15/21 Interval History: 80-year-old gentleman with underlying history metastatic prostate cancer on hospice CKD, nephrolithiasis as chronic back pain, recent [facility] admission for septic shock secondary to left-sided hydroureteronephrosis status post nephrostomy admitted on 04/13/2021 with bacteremia with source. Patient has had poor response to initial crystalloid resuscitation. He has been started on colloidal support and admitted to in tensive care unit. He has been evaluated by Urology with placement of Ayala catheter and no requirement for nephrostomy exchange. No events overnight. Critical Care Time (minutes): 0 Physical Exam Vital Signs: Vital Signs: Last Vital Signs Temp 98.0 F 04/15/21 10:00 Pulse 65 04/15/21 10:00 Resp 23 H 04/15/21 10:00 BP 102/66 04/15/21 10:00 Pulse Ox 98 04/15/21 10:00 Body Mass Index 22.9 Const: General: no acute distress, alert and awake Nutritional Appearance: thin Eyes: Sclerae: sclerae normal EOM: EOMs intact bilaterally Neck: Neck: Yes no lymphadenopathy, Yes trachea midline and Yes supple Resp: Effort & Inspection: normal respiratory effort and no respiratory distress Auscultation: clear to auscultation bilaterally Cardio: Rate: regular rate Rhythm: regular rhythm Heart sounds: no gallops, no murmurs and no rubs GI: Palpation (GI): Soft to palpation and Other GI palpation findings present ( Nontender) Auscultation: normal bowel sounds : General: Yes other (Left nephrostomy with output) Extrem: General: Yes no pedal edema, No clubbing and No cyanosis Objective Data Labs CBC & Chem 7: 04/15/21 05:40 04/15/21 05:40 Labs: Laboratory Results - last 24 hr 04/15/21 04/15/21 04/15/21 05:40 05:40 05:42 WBC 3.0 L RBC 2.23 L Hgb 6.6 L* Hct 21.4 L MCV 96.0 MCH 29.6 MCHC 30.8 L RDW 18.0 H Plt Count 64 L MPV 10.4 Immature Gran % (Auto) 1.0 H Neut % (Auto) 69.4 Lymph % (Auto) 16.0 L [place] % (Auto) 12.0 H Eos % (Auto) 1.3 Baso % (Auto) 0.3 Lymph # (Auto) 0.5 L [place] # (Auto) 0.4 Eos # (Auto) 0.0 Baso # (Auto) 0.0 Abs Immat Gran (auto) 0.03 Absolute Neuts (auto) 2.1 Absolute Nucleated RBC 0.000 Nucleated RBC % (auto) 0.0 VBG pH 7.43 VBG pCO2 27 VBG pO2 28 VBG HCO3 18 L VBG O2 Saturation 39.0 VBG Base Excess -4.9 Sodium 143 Potassium 4.1 Chloride 117 H Carbon Dioxide 18 L Anion Gap 12 BUN 28 H Creatinine 1.94 H Estim Creat Clear Calc 26.9 Estimated GFR 33 Random Glucose 124 H Calcium 7.9 L D Phosphorus 2.8 Magnesium 2.0 Albumin 3.8 D Blood Type Antibody Screen Crossmatch 04/15/21 07:28 WBC RBC Hgb Hct MCV MCH MCHC RDW Plt Count MPV Immature Gran % (Auto) Neut % (Auto) Lymph % (Auto) [place] % (Auto) Eos % (Auto) Baso % (Auto) Lymph # (Auto) [place] # (Auto) Eos # (Auto) Baso # (Auto) Abs Immat Gran (auto) Absolute Neuts (auto) Absolute Nucleated RBC Nucleated RBC % (auto) VBG pH VBG pCO2 VBG pO2 VBG HCO3 VBG O2 Saturation VBG Base Excess Sodium Potassium Chloride Carbon Dioxide Anion Gap BUN Creatinine Estim Creat Clear Calc Estimated GFR Random Glucose Calcium Phosphorus Magnesium Albumin Blood Type A Positive Antibody Screen NEGATIVE Crossmatch See Detail Microbiology Microbiology Results: Microbiology 04/13/21 18:37 Urine Catheterized - Ayala Catheter Urine Culture - Final 04/13/21 19:15 Urine Other - Nephrostomy Urine Culture - Preliminary Escherichia coli Enterococcus/Streptococcus sp 04/13/21 16:27 Blood - Venous Blood Culture - Preliminary Gram negative bravo Prelim: GPC Gram Stain only 04/13/21 16:11 Blood - Venous Blood Culture - Preliminary Prelim: GNR Gram Stain only Prelim: GPC Gram Stain only Quality Stroke Does the patient have a stroke diagnosis?: No VTE Prior VTE?: Yes VTE Risk Level:: Medical - moderate - high VTE Device Contraindication: Treatment Not Indicated VTE Drug Contraindication: N/A - Med Ordered Progress Note: A&P Assessment and plan (1) Prostate cancer: Status: Acute (2) Bacteremia: Status: Acute (3) Acute UTI: Status: Acute (4) ANIYAH (acute kidney injury): Status: Acute Assessment and Plan: Assessment: 80-year-old gentleman admitted with sepsis with genitourinary source Plan: Neuro: No acute issues. Cardiac: No acute issues. Did not require pressors. Pulmonary: No acute issues. Renal: Acute kidney injury on the background of known renal calculi, sepsis, and prostate cancer. Non oliguric. Urology service care appreciated. Continue to monitor renal indices and urine output. Endo: No acute issues. GI: No acute issues. ID: Gram-positive and Gram-negative bacteremia empirically covered with broad- spectrum antibiotics. Heme/Onc: Subacute anemia secondary to hematuria with Ayala catheter placement. Status post transfusion of 1 unit of packed red blood cells. Psych: No acute issues. Miscellaneous: No acute issues. Prophylaxis: Pneumatic compression Diet: Regular
--- NOTE | 2021-04-15 11:20 | PC.NURSE ---
Assumed care from CHANDANA Arechiga at 07:00. Patient alert, lethargic, oriented to person only, vague/disoriented to place, time, and situation. Compliant with care. Blood ordered, blood consent obtained by and withnessed by RN with HCP. Patient sinus yoon/sinus rhythm on tele, seems that 1st degree avblock and BBB have resolved. BP soft, but MAP >65. QRS 117 ms. Patient yoon in the 50's. Patient on room air, sats 96-100%, shallow breathing. Limited ROM overall. Bedrest. . No complaints, mild tenderness of bilateral lower abdomen and scrotum during personal care, reddened abdoulaye area and bilat buttocks, large faint bruise to right hip, skin otherwise pale and intact. Refused breakfast, had iced tea, milk, and ok'd doughnuts brought in by family. Hematuria with dark bloody urine, penis is swollen and tender, as is scrotum, incontinent of small-moderate amount of urine with dark red blood, as well as 50 ccs out of left sided nephrostomy. Bladder scanned at 08:00 for 109 ccs. Large brown mushy BM incontinent. Transferred up to [facility] at 11:20 am, report given to CHANDANA King (Basia).
[2021-04-15] MEDS: cefTRIAXone sodium 1 GM in 0.9 % Sodium Chloride 50 ML IV (12:17)
[2021-04-15] MEDS: vancomycin HCL 750 MG in 0.9 % Sodium Chloride 250 ML 265 MG IV (13:19)
[2021-04-15 13:38] LABS: Vancomycin Random 12.4 mcg/mL (15-20)
[2021-04-15] MEDS: fentaNYL citrate/PF 100 MCG/2 ML VIAL 25 MCG IVPUSH (14:14)
[2021-04-16 03:48] VITALS: BP 106/59; PULSE 60; RESP 18; TEMP 36.6; O2SAT 100
[2021-04-16 08:00] VITALS: BP 134/62; PULSE 66; RESP 18; TEMP 36.9; O2SAT 98
[2021-04-16 08:18] LABS: Anion Gap 12 (12-20); Blood Urea Nitrogen 25 mg/dL (9-16); Calcium 7.5 mg/dL (8.4-10.2); Carbon Dioxide 16 mmol/L (22-29); Chloride 119 mmol/L (96-108); Creatinine Clr Calc Pharmacy 41.4; Estimated Glomerular Filt Rate 55; Glucose Random 103 mg/dL (60-115); Potassium 3.5 mmol/L (3.3-5.1); Sodium 143 mmol/L (135-145)
--- NOTE | 2021-04-16 08:49 | PHA.PROG ---
Admission Date/Time: April 13, 2021 21:02 Indication: Bacteremia Weight in k.6 kg Adjusted body weight in Kg: [place] body weight in Kg: Obesity Dosing Indication % IBW: Serum Creatinine - Last 168 Hours 04/13/21 04/14/21 04/15/21 16:14 05:34 05:40 Creatinine 1.72 H 1.68 H 1.94 H 04/16/21 07:57 Creatinine 1.26 Estimated CrCl and GFR - Last 168 Hours 04/13/21 04/14/21 04/15/21 16:14 05:34 05:40 Estim Creat Clear Calc 30.3 31.1 26.9 Estimated GFR 38 39 33 04/16/21 07:57 Estim Creat Clear Calc 41.4 Estimated GFR 55 Vancomycin Loading Dose: 1000 MG, followed by another 1000 mg 10 hours later to get him closer to a therapeutic AUC. Current Vancomycin Dosing Regimen: 750 mg Q24H Vancomycin Monitoring using AUC goal of 400 - 600 range with trough as surrogate marker: 1000 mg Q24h Predicting AUC of 503 Date and Time for next Vancomycin Level to be drawn: 04/16 @ 1100 Pharmacist Comments on Vancomycin Plan: Patients renal function improved greatly. Plan to increase to 1000 mg Q24H after the true trough comes back at 1100. Vancomycin dosing will take advantage of [employer] as a clinical decision support tool that uses Bayesian modeling to calculate individual patient's pharmacokinetic parameters and forecast the patient's drug concentration time course with the target goal AUC 24 range of 400 - 600 mg/L/hr.
--- NOTE | 2021-04-16 10:19 | P.PNIM_ITS ---
Subjective Subjective Date of Service: 04/16/21 Interval History: Transfered out of ICU for septic shock, UTI and bacteremia--feels better, shock resolved, has no complaint at this time/ Review of Systems no fever or chills, no pain , no dysuria Physical Exam Vital Signs: Vital Signs: Last Vital Signs Temp 98.4 F 04/16/21 08:00 Pulse 66 04/16/21 08:00 Resp 18 04/16/21 08:00 BP 134/62 04/16/21 08:00 Pulse Ox 98 04/16/21 08:00 Body Mass Index 22.9 General: AO X 3, no acute distress Resp: CTA bilateral CVS: S1,S2,RRR GI: +BS, NT, no distention Skin: No rash Neuro: motor grossly intact Psych: appropriate affect Objective Data Active Medications Fentanyl (Fentanyl Citrate/Pf 100 Mcg/2 Ml Vial) 25 mcg IVPUSH Q3H PRN; Pr otocol PRN Reason: pain Last Admin: 04/15/21 14:14 Dose: 25 mcg Documented by: TESS Vancomycin HCl 750 mg/ Sodium (Chloride) 265 mls @ 265 mls/hr IV Q24H [facility] Last Infusion: 04/15/21 14:25 Dose: 0 mls/hr Documented by: TESS Ceftriaxone Sodium 1 gm/ (Sodium Chloride) 50 mls @ 100 mls/hr IV Q24H [facility] Last Infusion: 04/15/21 13:06 Dose: 0 mls/hr Documented by: TESS Pharmacy Consult (Consult Rx Vancomycin Dosing) 1 each MISCELLANE DAILY PRN PRN Reason: Consult order Labs CBC & Chem 7: 04/15/21 05:40 04/16/21 07:57 Labs: Laboratory Results - last 24 hr 04/15/21 04/15/21 04/16/21 07:28 13:02 07:57 Anion Gap 12 Estim Creat Clear Calc 41.4 Estimated GFR 55 Random Glucose 103 Calcium 7.5 L Random Vancomycin 12.4 L Crossmatch See Detail Microbiology Microbiology Results: Microbiology 04/13/21 16:11 Blood Culture - Preliminary Blood - Venous Escherichia coli Gram positive cocci 04/13/21 16:27 Blood Culture - Preliminary Blood - Venous Escherichia coli Enterococcus faecalis 04/13/21 19:15 Urine Culture - Final Urine Other - Nephrostomy Escherichia coli Enterococcus faecalis 04/13/21 18:37 Urine Culture - Final Urine Catheterized - Ayala Catheter Assessment and Plan (1) Bacteremia: Status: Acute (2) Sepsis: Status: Acute Assessment and Plan: 80 year old male with? past medical history of metastatic prostate cancer, BPH, CKD, nephrolithiasis, hepatic steatosis, Hypertension, anemia, chronic back pain and chronic? and recent? ICU admission at [facility] (03-28-21 to 04-05-21) for Shock from left-sided obstructive hydroureteronephrosis in the setting of obstructing calculi s/p nephrostomy and newly found metastatic prostate cancer. He? presented to the emergency room from rehab facility with c omplaints of hematuria and vomiting. ? In the emergency room he was noted to be hypotensive,? T high 101.6,? and tachycardic. and was in septic shock of urological source and admitted to ICU but did did not require pressors--Urine and blood cultures are growing E colit and enteroccus 1/Septic shock--resolved 2/E.coli and enteroccorus bacteremia and UTI -Presently onn Vancomycin and Ceftriaxone but can simplify to ampicilin -ID consult 3/ Anemia--likely of chronic disease Hgb 6 yesterday, recheck and if still low transfuse 4/Prostate cancer, he is supposed to be on hospice with clarify this with the family Quality Stroke Does the patient have a stroke diagnosis?: No VTE Prior VTE?: Yes VTE Risk Level:: Medical - moderate - high VTE Device Contraindication: Treatment Not Indicated VTE Drug Contraindication: N/A - Med Ordered
[2021-04-16 11:12] LABS: Hematocrit 26.9 % (42.0-52.0); Hemoglobin 8.9 g/dl (14.0-18.0); Mean Corpuscular HGB Conc 33.1 g/dl (31.0-36.0); Mean Corpuscular Hemoglobin 30.4 pg (27.0-33.0); Mean Corpuscular Volume 91.8 fL (80.0-98.0); Mean Platelet Volume 9.6 fL (9.4-12.4); Platelet Count 106 X10*3/uL (160-400); Red Blood Count 2.93 X10*6/uL (4.60-5.80); Red Cell Distribution Width 17.4 % (11.0-16.0); White Blood Count 5.4 X10*3/uL (4.8-10.8)
[2021-04-16 11:35] LABS: Vancomycin Trough 11.5 mcg/mL (10.0-20.0)
[2021-04-16 12:00] VITALS: BP 120/58; PULSE 69; RESP 18; TEMP 36.4; O2SAT 99
[2021-04-16] MEDS: Ampicillin Sodium/Sulbactam Na 3 GM in 0.9 % Sodium Chloride 100 ML IV ×2 (12:21→17:26)
[2021-04-16 15:38] VITALS: BP 116/60; PULSE 68; RESP 18; TEMP 36.6; O2SAT 98
[2021-04-16 20:00] VITALS: BP 112/64; PULSE 74; RESP 15; TEMP 36.6; O2SAT 96
[2021-04-17] VITALS (7 sets, daily range): BP systolic 103–131; BP diastolic 51–64; PULSE 55–67; RESP 18–20; TEMP 36.4–36.8; O2SAT 97–100
[2021-04-17] MEDS: Ampicillin Sodium/Sulbactam Na 3 GM in 0.9 % Sodium Chloride 100 ML IV ×5 (00:07→23:20)
--- NOTE | 2021-04-17 07:44 | P.CDIC_ITS ---
CDI Concurrent Query Documentation Clarification: PHYSICIAN'S DOCUMENTATION REQUEST Date of Query: 04/17/21 0744 Patient Name: Dion Vera Admit Date: 04/13/21 Dear Doctor, A review of the medical record indicates additional documentation may be needed. Please review below and update the documentation accordingly. Clinical Indicators: The following clinical information was noted in the record: Risk Factors/Clinical Indicators/Treatments BUN 21, Creatinine 1.72, GFR 38 Per MD Progress Note 04/14/21: Renal:? Acute kidney injury on the background of known renal calculi, sepsis, and prostate cancer.? Non oliguric.? Urology service care appreciated.? Continue to monitor renal indices and urine output. Per H&P: ANIYAH, non-oliguric/CKD Please clarify which of the following accurately represents the patient's renal status: * Acute renal failure (with type, appropriate) on Chronic Kidney Disease (CKD) - see criteria * CKD, please provide stage - see criteria * ESRD - CKD V now requiring permanent dialysis and/or transplant * Other (please specify) * Unable to determine Criteria for ANIYAH* Stages of Chronic Kidney Disease* 1. Increase in serum creatinine by ? 0.3 mg/dL Level Description GFR (?26.5 micromol/L) within 48 hours, or G1 Normal or High > 90 2. Increase in serum creatinine to ?1.5 times baseline, G2 Mildly decreased 60 ? 89 which is known or presumed to have occurred within 7 days, or G3a Mildly to moderately decreased 45 ? 59 3. Urine volume <0.5 mL/kg/hour for six hours G3b Moderately to severely decreased 30 - 44 G4 Severely decreased 15 ? 29 G5 Kidney failure < 15 *Source: Kidney Disease: Improving Global Outcomes (KDIGO) 2012 Use of terms such as suspected, likely, concern for, or probable (associated with a specific diagnosis that is being evaluated, monitored, or treated as if it exists) are acceptable and can be coded in the inpatient setting, when documented at the time of discharge. Thank you, Quin Lema RN Extension: [phone] Please use your independent medical judgment in providing your response. THIS QUERY IS PART OF THE PERMANENT MEDICAL RECORD Provider Response: Acute Kidney Failure Other Diagnosis: ANIYAH and CKD, possible aTN
--- NOTE | 2021-04-17 12:27 | MHC.CM.PN ---
Per MD during rounds: pt will d/c to home with /7 family and [facility] care on 04/18. Dtr Yenni to transport
--- NOTE | 2021-04-17 13:17 | MHC.CLN ---
F/U PT IS AT INCREASED NUTRITION RISK R/T METASTATIC PROSTATE CA PO INTAKE 75% AVG DIET RX: REGULAR-APPROPRIATE RECOMMEND ADDING ENSURE PLUS TID SUPPLEMENT PT MAY BE PENDING HOSPICE PER MD MONITOR PO INTAKE CLOSELY
--- NOTE | 2021-04-17 14:45 | HO.PM.IMPN ---
Subjective Subjective Date of Service: 04/17/21 Interval History: Transfered out of ICU for septic shock, UTI and bacteremia--feels better, shock resolved, has no complaint at this time/ Review of Systems no fever or chills, no pain , no dysuria Physical Exam Vital Signs: Vital Signs: Last Vital Signs Temp 97.6 F 04/17/21 11:55 Pulse 55 04/17/21 11:55 Resp 20 04/17/21 11:55 BP 110/51 L 04/17/21 11:55 Pulse Ox 100 04/17/21 11:55 Body Mass Index 22.9 Const: Other: General: AO X 2, no acute distress Resp:? CTA bilateral CVS: S1,S2,RRR GI: +BS, NT, no distention Skin: No rash Neuro:? motor grossly intact Psych: appropriate affect Objective Data Active Medications Fentanyl (Fentanyl Citrate/Pf 100 Mcg/2 Ml Vial) 25 mcg IVPUSH Q3H PRN; Protocol PRN Reason: pain Last Admin: 04/15/21 14:14 Dose: 25 mcg Documented by: TESS Ampicillin Sodium/Sulbactam (Sodium 3 gm/ Sodium Chloride) 100 mls @ 200 mls/hr IV Q6H [facility] Last Infusion: 04/17/21 11:07 Dose: 0 mls/hr Documented by: RAUDEL Pharmacy Consult (Consult Rx Vancomycin Dosing) 1 each MISCELLANE DAILY PRN PRN Reason: Consult order Labs CBC & Chem 7: 04/16/21 11:07 04/16/21 07:57 Labs: Laboratory Results - last 24 hr 04/15/21 05:40 Smear Path Review SEE NOTE Microbiology Microbiology Results: Microbiology 04/13/21 16:11 Blood Culture - Preliminary Blood - Venous Escherichia coli Gram positive cocci 04/13/21 16:27 Blood Culture - Final Blood - Venous Escherichia coli Enterococcus faecalis Assessment and Plan (1) Bacteremia: Status: Acute (2) Sepsis: Status: Acute Assessment and Plan: 80 year old male with? past medical history of metastatic prostate cancer, BPH, CKD, nephrolithiasis, hepatic steatosis, Hypertension, anemia, chronic back pain and chronic? and recent? ICU admission at [facility] (03-28-21 to 04-05-21) for Shock from left-sided obstructive hydroureteronephrosis in the setting of obstructing calculi s/p nephrostomy and newly found metastatic prostate cancer. He? presented to the emergency room from rehab facility with complaints of hematuria and vomiting. ? In the emergency room he was noted to be hypotensive,? T high 101.6,? and tachycardic. and was in septic shock of urological source and admitted to ICU but did did not require pressors--Urine and blood cultures are growing E colit and enteroccus 1/Septic shock--resolved 2/E.coli and enteroccorus bacteremia and UTI -Presently onn Vancomycin and Ceftriaxone, changed to ampicillin on 04/16 -change to PO Augmeentin -ID consult 3/ Anemia--likely of chronic disease Hgb 6 yesterday, recheck and if still low transfuse 4/Prostate cancer, he is supposed to be on hospice with clarify this with the family DC tomorrow Quality Stroke Does the patient have a stroke diagnosis?: No VTE Prior VTE?: Yes VTE Risk Level:: Medical - moderate - high VTE Device Contraindication: Treatment Not Indicated VTE Drug Contraindication: N/A - Med Ordered
--- NOTE | 2021-04-17 15:13 | W.PM.IDCN ---
History of Present Illness Data of Consult Service Date: 04/17/21 [facility] Care Provider: JUNITO WADDELL Reason for consult: sepsis He presents with fever and hypotension to hospital. He also has had hematuria. He was discharged from [facility] on 04/05 after stay for hematuria. He had initially presented to PCP office and was given fluid and Ceftriaxone enroute to hospital 03/21. He had newly diagnosed prostate cancer with metatasis to spine and sacrum that are lytic. Palliative care was consulted but patient is apparently pursuing some care with Urology. He had severe left hydronephrosis with obstructive calculi left ureter. He had left renal artery hemorrhage and some hematoma. He had Left PCN placed. Despite hypotension he had negative blood and urine cultures at [facility] but did have 6 days Zosyn. Here he has enterococcus and E coli blood and urine. Review of Systems Review of Systems: Yes Unobtainable due to mental condition Neurologic: Reports confusion Psychiatric: Psychiatric: Reports confusion [facility] Past Medical History Medical History (Updated 04/14/21 @ 13:11 by Thee Butcher MD) Anemia Chronic kidney failure DVT (deep venous thrombosis) Hypertension Presence of IVC filter Prostate cancer Surgical History Surgical History (Updated 04/13/21 @ 22:34 by Bindu Trinh RN) Nephrostomy status Social History Social History Housing: Assisted Do you presently have visiting nurse or other home services: No Unable to assess alcohol history related to: Unknown Alcohol intake: unknown Patient Tobacco Use Status: Tobacco use Unknown Use of substances other than those prescribed or required for medical reasons: Unknown Currently Displaying Signs/Symptoms of Drug Intoxication Withdrawal: No Advance Directives: No Advance Directives Information Provided: Yes Do you have thoughts of harming others: None Do you have a plan to hurt others: No Plan Recently lost weight without trying: Unsure Nutrition Risks: No Nutritional Risk Meds Allergies Allergy/AdvReac Type Severity Reaction Status Date / Time No Known Allergies Allergy Verified 04/13/21 15:11 Active Medications: Current Medications Fentanyl (Fentanyl Citrate/Pf 100 Mcg/2 Ml Vial) 25 mcg IVPUSH Q3H PRN; Protocol PRN Reason: pain Last Admin: 04/15/21 14:14 Dose: 25 mcg Documented by: Ampicillin Sodium/Sulbactam (Sodium 3 gm/ Sodium Chloride) 100 mls @ 200 mls/hr IV Q6H [facility] Last Infusion: 04/17/21 11:07 Dose: Infused Documented by: Pharmacy Consult (Consult Rx Vancomycin Dosing) 1 each MISCELLANE DAILY PRN PRN Reason: Consult order Physical Exam Vital Signs: Vital Signs: Last Vital Signs Temp 97.6 F 04/17/21 11:55 Pulse 55 04/17/21 11:55 Resp 20 04/17/21 11:55 BP 110/51 L 04/17/21 11:55 Pulse Ox 100 04/17/21 11:55 Body Mass Index 22.9 Const: General: cooperative and confusion Orientation/consciousness: confusion HENMT: Head: Yes normal to inspection Mouth: Normal oral and palatal mucosa present Eyes: General: appearance normal, both eyes and all related structures Resp: Effort & Inspection: normal respiratory effort Cardio: Rate: regular rate Rhythm: regular rhythm GI: Palpation (GI): Soft to palpation and nontender Neuro: General: confusion Results Labs CBC & Chem 7: 04/16/21 11:07 04/16/21 07:57 Microbiology Microbiology Results: Microbiology 04/13/21 16:11 Blood - Venous Blood Culture - Preliminary Escherichia coli Gram positive cocci 04/13/21 16:27 Blood - Venous Blood Culture - Final Escherichia coli Enterococcus faecalis 04/13/21 19:15 Urine Other - Nephrostomy Urine Culture - Final Escherichia coli Enterococcus faecalis 04/13/21 18:37 Urine Catheterized - Ayala Catheter Urine Culture - Final Assessment and Plan (1) Prostate cancer: Status: Acute (2) Bacteremia: Status: Acute (3) Sepsis: Status: Acute (4) Septic shock: Status: Acute Patient with E coli and enterococcus bacteremia,with hypotension,septic shock. He is doing better. He is confused due to baseline dementia. Would give 21 days Augmentin Follow with Urology
[2021-04-18 03:12] VITALS: BP 119/58; PULSE 67; RESP 18; TEMP 36.6; O2SAT 96
[2021-04-18] MEDS: Ampicillin Sodium/Sulbactam Na 3 GM in 0.9 % Sodium Chloride 100 ML IV ×2 (05:04→11:26)
[2021-04-18 08:00] VITALS: BP 127/63; PULSE 63; RESP 18; TEMP 36.5; O2SAT 98
--- NOTE | 2021-04-18 10:34 | PC.NURSE ---
Skin assessment completed. Patient has red swollen scrotum and swollen penis. [place] catheter removed and a male incontinent wrap applied under scrotum and tacked with velcro. another wrap applied around penis and tacked with velcro. Patient states that the wraps are more comfortable than the [place] catheter and there is no pain as he got from the catheter. Nurses stated that the wraps absorbed the urine very well and kept skin dry. The scrotum is being protected from the wrap and the redness is improving, continuing to apply barrier cream.
[2021-04-18 11:47] VITALS: BP 126/60; PULSE 65; RESP 20; TEMP 36.1; O2SAT 99
--- NOTE | 2021-04-18 14:23 | P.DS_ITS ---
DS: Providers Provider Date of Service: 04/18/21 Date of admission: 04/13/21 21:02 Date of discharge: 04/18/21 Primary care physician: JUNITO WADDELL Consults: 04/16/21 10:44 Consult to Infectious Diseases Routine Consulting Provider: Shae Irving Reason for consultation: bacteremia DS: Diagnosis Discharge Diagnosis (1) Prostate cancer: Status: Acute (2) Bacteremia: Status: Acute (3) Sepsis: Status: Acute (4) Septic shock: Status: Acute DS: Summary Hospital Course Hospital Course: 80 year old male with? past medical history of metastatic prostate cancer, BPH, CKD, nephrolithiasis, hepatic steatosis, Hypertension, anemia, chronic back pain and chronic? and recent? ICU admission at [facility] (03-28-21 to 04-05-21) for Shock from left-sided obstructive hydroureteronephrosis in the setting of obstructing calculi s/p nephrostomy and newly found metastatic prostate cancer. He? presented to the emergency room from rehab facility with complaints of hematuria and vomiting. ? In the emergency room he was noted to be hypotensive,? T high 101.6,? and tachycardic. and was in septic shock? of urological source and admitted to ICU but did? did not require pressors--Urine and blood cultures are growing E colit and enteroccus. Hospital course: Septic shock--resolved, blood culture and urine cultures -E.coli and enteroccorus bacteremia and UTI. initialy was Vancomycin and Ceftriaxone, seems improved significantly.seen by I D - changed to ampicillin on 04/16-change to PO Augmentin for 3 weeks. Anemia--noted to be thought likely of chronic disease?,got 1 prbc in ICU,h/h improved to 8.9 range . Monitor CBC in 1 week with pcp. Avoid any aspirin or NSAIDs. In addition spoke to patient daughter in detail about his metastatic cancer they are going to make appointment out patiently in [facility] as per the daughter. for left-sided obstructive hydroureteronephrosis in the setting of obstructing calculi s/p nephrostomy, also has enlarged prostate abd ct: Follow-up with Urology outpatient. Incidental finding on the abdominal CT also has IVC filter discussed with the family to follow up with PCP for further management. Patient was advised to follow-up with PCP and urology follow up. Discussed with the family in detail-they want to take patient home and understand and in agreement with the above plan, time spent 50 minutes and 50% time spent on counseling. Significant findings: As above. Procedures performed: None. Treatment and response: As above. Complications: None. Time Spent with Patient Time attestation: Total time spent providing and/or coordinating discharge services: Discharge coordination time: Greater than 30 minutes Quality: Stroke Does the patient have a stroke diagnosis?: No Physical Exam Vital Signs: Vital Signs: Last Vital Signs Temp 97.0 F 04/18/21 11:47 Pulse 65 04/18/21 11:47 Resp 20 04/18/21 11:47 BP 126/60 04/18/21 11:47 Pulse Ox 99 04/18/21 11:47 Body Mass Index 22.9 General: AO X 3, no acute distress Resp:? CTA bilateral CVS: S1,S2,RRR GI: +BS, NT, no distention Skin: No rash Neuro:? motor grossly intact Psych: appropriate affect DS: Data Additional Comments Additional comments: IMPRESSION: 1.? Bilateral pleural effusions with bilateral lower lobe atelectasis/infiltrate 2.? Left percutaneous nephrostomy catheter in good position without hydronephrosis and left renal calculi. No perinephric abscess. 3.? The catheter is in the urethra and not the bladder. The prostate is extremely large and there are 3 calculi in the bladder. 4.? Cholelithiasis is present without evidence of cholecystitis. 5.? Diffuse sclerotic areas in bone are seen along with compression fractures involving L1 and L4. Metastatic prostate CA is a consideration and a radionuclide bone scan would be of value. 6.? Other incidental findings as described above including the presence of an IVC filter. Discharge Plan Discharge Patient Disposition: Home Health Service Discharge Diagnosis: SEPSIS/bacteremia/UTI Referrals: [facility] [Outside] - 1 Week [facility] [Outside] - 1 Week JUNITO WADDELL [Primary Care Provider] - 1 Week Discharge Medications: New acetaminophen [Tylenol] 325 mg capsule 650 mg PO Q6H PRN (Reason: pain) Qty: 10 RF: 0 amoxicillin-pot clavulanate [Augmentin] 875-125 mg tablet 1 tab PO BID Qty: 40 RF: 0 omeprazole 20 mg capsule,delayed release(DR/EC) 20 mg PO DAILY Qty: 30 RF: 0 Discharge Orders: Discharge Order (Routine); Ordered 04/18/21 Ordered By: Grisel Rogel Diet: advance to usual diet Activity on Discharge: As tolerated Stand Alone Forms: Patient Portal Discharge page Care Plan Goals: Septic shock--resolved, blood culture and urine cultures -E.coli and enteroccorus bacteremia and UTI. initialy was Vancomycin and Ceftriaxone, seems improved significantly.seen by ID - changed to ampicillin on 04/16-change to PO Augmentin for 3 weeks. Anemia--likely of chronic disease?,got 1 prbc in ICU,h/h improved to 8.9 range . Monitor CBC in 1 week with pcp. Avoid any aspirin or NSAIDs. Patient was advised to follow-up with PCP and urology follow up. Health Concerns: as above. Plan of Treatment: as above. Assessment: as above. Discharge Date/Time: 04/18/21 15:10
[2021-04-18] MEDS: Amoxicillin/Potassium Clav 875 MG TABLET PO (15:11)
== END 2021-04-18 15:10 | disposition home health service (06) | DRG 871 ==
LOC: HO.ED 16:16 → HO.EDOVER 21:35 → HO.ICU 21:37 → HO.IMC 04-15 09:26
PROVIDERS: Internal Medicine; Internal Medicine Pulmonary Disease; Physician Assistant; Admitting Provider Registered Nurse Community Health; Emergency Provider Emergency Medicine Emergency Medical Services; PCP Emergency Medicine; Visit Provider Internal Medicine
DX: A41.51 Sepsis due to Escherichia coli [E. coli] (principal); R65.21 Severe sepsis with septic shock; N17.0 Acute kidney failure with tubular necrosis; N39.0 Urinary tract infection, site not specified; C79.51 Secondary malignant neoplasm of bone; A41.81 Sepsis due to Enterococcus; D63.1 Anemia in chronic kidney disease; K80.20 Calculus of gallbladder without cholecystitis without obstruction; N18.9 Chronic kidney disease, unspecified; G89.29 Other chronic pain; C61 Malignant neoplasm of prostate; F03.90 Unspecified dementia, unspecified severity, without behavioral disturbance, psychotic disturbance, mood disturbance, and anxiety; D69.6 Thrombocytopenia, unspecified; R31.9 Hematuria, unspecified; Z20.822 Contact with and (suspected) exposure to COVID-19; Z79.899 Other long term (current) drug therapy
CPT/HCPCS: 0241U; 36415; 71250; 74176; 80048; 80053; 80202; 81001; 81003; 82040; 82803; 82947; 83605; 83735; 84100; 85025; 85027; 85610; 85730; 86850; 86900; 86901; 86923; 87040; 87077; 87086; 87088; 87186; 87205; 96361; 96365; 96366; 96367; 99285; 99291; J0295; J0456; J0696; J2543; J3010; J3370; P9016; P9047